=== PATIENT | male | born 1990 | race Caucasian/White ===

== ENCOUNTER → 2020-12-06 | Outpatient (CLI) | payer MEDICAID | LOC: RAD 12-04 10:00 | DX: M47.816 Spondylosis without myelopathy or radiculopathy, lumbar region (principal) ==

== ENCOUNTER → 2021-01-15 | Outpatient (CLI) | payer MEDICAID ==
[2021-01-15 10:55] LABS: BASO # 0.03 K/mm3 (0.02-0.10); EOS # 0.06 K/mm3 (0.04-0.40); EOS % 0.8 % (0.0-4.0); HEMATOCRIT 46.2 % (42.0-52.0); HEMOGLOBIN 15.6 g/dL (13.5-18.0); MEAN CELL VOLUME 94 fl (78-100); MEAN CORPUSCULAR HEMOGLOBIN 32 pg (27-31); MEAN CORPUSCULAR HGB CONC 34 g/dL (33-37); MEAN PLATELET VOLUME 9.6 fl (7.4-10.4); MONO # 0.63 K/mm3 (0.20-0.80); NEU # 4.53 K/mm3 (1.40-6.50); PLATELET COUNT 232 K/mm3 (130-400); RED BLOOD COUNT 4.94 M/mm3 (4.20-5.60); WHITE BLOOD COUNT 7.2 K/mm3 (4.8-10.8)
[2021-01-15 11:02] LABS: ALBUMIN 4.1 g/dL (3.5-5.0)
[2021-01-15 11:03] LABS: POTASSIUM 4.2 mmol/L (3.5-5.1)
[2021-01-15 11:04] LABS: CALCIUM 9.5 mg/dL (8.3-10.5)
[2021-01-15 11:05] LABS: TOTAL PROTEIN 6.9 g/dL (6.4-8.3)
[2021-01-15 11:07] LABS: TOTAL BILIRUBIN 0.5 mg/dL (0.2-1.2)
== END ==
LOC: LAB 09:55
PROVIDERS: Internal Medicine
DX: G43.909 Migraine, unspecified, not intractable, without status migrainosus (principal)

== ENCOUNTER 2023-06-02 08:36 | Emergency (ER) | payer BC, MEDICAID ==
[~2023-06-02] VITALS: Ht 170.2 cm; Wt 75.5 kg
[~2023-06-02 08:36] MED LIST: ONDANSETRON HYDR4 MG PO
[2023-06-02] MEDS ORDERED: WELLBUTRIN XL300 M1 PO (08:48)
[2023-06-02] MEDS ORDERED: ACETAMINOPHEN-H1 TA1 PO (08:48)
[2023-06-02] MEDS ORDERED: droPERidol 2.5 MG/ML 2 ML VIAL IV ONE (09:00)
[2023-06-02] MEDS ORDERED: NS 1,000 ML IV SCH (09:00)
[2023-06-02] MEDS ORDERED: Iohexol 300 - 100 ML VIAL IV ONE (09:23)
[2023-06-02 09:25] LABS: BASO # 0.02 K/mm3 (0.02-0.10); EOS # 0.07 K/mm3 (0.04-0.40); EOS % 1.1 % (0.0-4.0); HEMOGLOBIN 16.3 g/dL (13.5-18.0); LYMPH# 1.53 K/mm3 (1.50-4.00); MEAN CELL VOLUME 91 fl (78-100); MEAN CORPUSCULAR HEMOGLOBIN 31 pg (27-31); MEAN CORPUSCULAR HGB CONC 34 g/dL (33-37); MEAN PLATELET VOLUME 10.8 fl (7.4-10.4); MONO # 0.53 K/mm3 (0.20-0.80); NEU # 4.14 K/mm3 (1.40-6.50); PLATELET COUNT 216 K/mm3 (130-400); RED BLOOD COUNT 5.29 M/mm3 (4.20-5.60); RED CELL DISTRIBUTION WIDTH 11.8 % (11.5-14.5); WHITE BLOOD COUNT 6.3 K/mm3 (4.8-10.8)
[2023-06-02 10:24] LABS: ALBUMIN 4.3 g/dL (3.5-5.0); SODIUM 138 mmol/L (136-145)
[2023-06-02 10:26] LABS: GLUCOSE 91 mg/dL (75-110); TOTAL PROTEIN 6.7 g/dL (6.4-8.3)
[2023-06-02 10:27] LABS: CARBON DIOXIDE 18 mmol/L (22-29)
[2023-06-02 10:32] LABS: AST-SGOT 15 U/L (5-34)
[2023-06-02 10:33] LABS: ALT/SGPT 12 U/L (0-55); LIPASE 29 U/L (8-78)
[2023-06-02 10:53] LABS: PH-URINE 7.5 (5.0 - 8.0); URINE APPEARANCE CLEAR (CLEAR); URINE BILIRUBIN NEGATIVE (NEGATIVE); URINE COLOR YELLOW (YELLOW); URINE GLUCOSE NEGATIVE (NEGATIVE); URINE KETONE 3+ (NEGATIVE); URINE PROTEIN(semi-quant) NEGATIVE (NEGATIVE)
[2023-06-02 10:54] LABS: URINE BLOOD NEGATIVE (NEGATIVE); URINE LEUKOCYTE ESTERASE NEGATIVE (NEGATIVE); URINE NITRATE NEGATIVE (NEGATIVE); URINE WBC 0-1 /hpf (0-3)
[2023-06-02] MEDS ORDERED: PHENERGAN 25 TA25 MG PO (11:07)
[2023-06-02 11:22] VITALS: BP 140/96
== END 2023-06-02 11:18 | disposition home or self-care (01) ==
LOC: ED 08:36
PROVIDERS: Physician Assistant
DX: R11.2 Nausea with vomiting, unspecified (principal); R10.32 Left lower quadrant pain
CPT/HCPCS: J1790; J7030; Q9967

== ENCOUNTER → 2024-04-19 | Outpatient (CLI) | payer MEDICAID ==
[~2024-04-19] MED LIST changes: +ACETAMINOPHEN-H1 TA1 PO; +PHENERGAN 25 TA25 MG PO; +WELLBUTRIN XL300 M1 PO
== END ==
LOC: CARDREHAB 04-12 14:51
DX: G47.33 Obstructive sleep apnea (adult) (pediatric) (principal)
CPT/HCPCS: G0399